=== PATIENT | female | born 1985 | race Caucasian/White ===

== ENCOUNTER 2016-12-22 21:55 | Emergency (ER) | payer MEDICAID, SELFPAY ==
[~2016-12-22] VITALS: Ht 162.6 cm; Wt 79.0 kg
[~2016-12-22 21:55] MED LIST: [UNRECOGNIZED DRUG - OTHER]
[2016-12-22 22:03] VITALS: BP 129/77
[2016-12-22] MEDS ORDERED: NAPR-58 PO (22:06)
[2016-12-22] MEDS ORDERED: KETOROLAC TROMETHAMINE 60 MG/2 ML VIAL IM ONE (22:30)
== END 2016-12-23 00:13 | disposition home or self-care (01) ==
LOC: EMS 21:56
DX: M62.838 Other muscle spasm (principal); M54.5 Low back pain
CPT/HCPCS: 96372; 99283; J1885